=== PATIENT | male | born 1980 | race African-American/Black ===

== ENCOUNTER 2018-09-15 16:20 | Observation (INO) | payer SELFPAY ==
[2018-09-15 16:56] VITALS: BMI 25.7
[2018-09-15] MEDS ORDERED: Acetaminophen 650 MG Suppository PR PRN (18:11)
[2018-09-15] MEDS ORDERED: Acetaminophen 325 MG TAB PO PRN (18:11)
[2018-09-15] MEDS ORDERED: Ondansetron PF 4 MG/2 ML Vial IVP PRN (18:11)
[2018-09-15] MEDS ORDERED: Ondansetron ODT 4 MG TAB PO PRN (18:11)
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
--- NOTE | 2018-09-15 19:53 | RAD ---
LUMBAR SPINE: 09/15/18 Three views. HISTORY: Lower extremity weakness. Lumbar vertebrae maintain height and alignment. There are mild to moderate degenerative osteophytes. The disc spaces are preserved. No evidence of spondylolisthesis or spondylolysis. IMPRESSION: There are mild degenerative changes noted with spurring from the lumbar vertebrae. No acute process. POS: MAGGIE
[2018-09-15] MEDS: Pramipexole Di-HCl 1 MG TAB PO SCH (20:41)
[2018-09-15] MEDS ORDERED: Pramipexole Di-HCl 0.25 MG TAB PO SCH (21:00)
--- NOTE | 2018-09-16 07:06 | PDOC.FM ---
- Subjective Subjective: pt resting comfortably in bed, denies pain, SOB, or dysphagia. - Objective Vital Signs & Weight: Vital Signs (12 hours) Temp Pulse Resp BP BP Pulse Ox 09/16/18 03:30 97.9 F 62 18 133/69 99 09/15/18 23:30 98.0 F 60 17 134/84 98 09/15/18 20:00 97.9 F 56 L 16 137/76 99 Weight Weight 79.124 kg I&O: 09/15/18 09/16/18 09/17/18 06:59 06:59 06:59 Intake Total 450 Output Total 700 Balance -250 Result Diagrams: 09/16/18 10:09 09/16/18 10:09 Phys Exam - Physical Examination Constitutional: NAD HEENT: moist MMs Neck: full ROM Musculoskeletal: pulses present Neurological: moves all 4 limbs hyperreflexia, +babinski, fasiculations and atrophy Lymphatic: no nodes Psychiatric: normal affect Skin: no rash Dx/Plan (1) Lower motor neuron disease Code(s): G12.29 - OTHER MOTOR NEURON DISEASE Status: Acute (2) Upper motor neuron disease Code(s): G12.21 - AMYOTROPHIC LATERAL SCLEROSIS Status: Acute - Plan Plan: 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 Hearn. I agree with the History, Examination, Assessment and Plan documented above with any addition or exceptions noted below. Patient here with several month history of progressive weakness, ataxia, and hyperreflexia. Direct admitted from outside clinic due to concern for worsening status. Awaiting L spine MRI and further mgmt per that result including further spine imaging or specialist consult. Consult PT. MRI brain previously obtained which was normal. Continue steroids.
[2018-09-16] MEDS ORDERED: predniSONE 20 MG TAB PO SCH (08:00)
[2018-09-16] MEDS: Pramipexole Di-HCl 1 MG TAB PO SCH (09:23)
[2018-09-16 10:19] LABS: #Basophils 0.1 thou/uL (0.0-0.2); #Eosinphils 0.3 thou/uL (0.0-0.7); #Lymphocytes 3.4 thou/uL (1.20-3.40); #Monocytes 0.7 thou/uL (0.11-0.59); #Neutrophils 3.5 thou/uL (1.40-6.50); %Basophils 0.8 % (0.0-1.0); %Eosinophils 3.5 % (0.0-10.0); %Lymphocytes 43.1 % (21.0-51.0); %Monocytes 8.7 % (0.0-10.0); Hemoglobin 12.8 g/dL (14.0-18.0); Mean Corpuscular HGB CONC 32.6 g/dL (32.0-36.0); Mean Corpuscular Hemoglobin 31.2 pg (27.0-31.0); Mean Corpuscular Volume 95.6 fL (78.0-98.0); Mean Platelet Volume 6.8 fL (7.4-10.4); Platelet Count 275 thou/uL (130-400); RBC Distribution Width 12.3 % (11.5-14.5); Red Blood Cell (RBC) Count 4.12 mill/uL (4.70-6.10); White Blood Cell (WBC) Count 7.9 thou/uL (4.8-10.8)
[2018-09-16 10:42] LABS: ALT (SGPT) 41 U/L (8-55); AST (SGOT) 33 U/L (5-34); Albumin 4.1 g/dL (3.5-5.0); Alkaline Phosphatase 41 U/L (40-150); Anion Gap 11 mmol/L (10-20); BUN (Urea Nitrogen) 8 mg/dL (8.9-20.6); Bilirubin, Total 0.2 mg/dL (0.2-1.2); Calc. Creatinine Clearance 137 mL/min (70-130); Calcium 9.6 mg/dL (7.8-10.44); Carbon Dioxide 28 mmol/L (22-29); Chloride 104 mmol/L (98-107); Estimated GFR-MDRD Greater than 90; Globulin 2.7 g/dL (2.4-3.5); Glucose 99 mg/dL (70-105); Phosphorus 3.6 mg/dL (2.3-4.7); Potassium 3.5 mmol/L (3.5-5.1); Protein, Total 6.8 g/dL (6.0-8.3); Sodium 139 mmol/L (136-145)
--- NOTE | 2018-09-16 10:45 | MRI ---
Exam: MRI LUMBAR SPINE WITH AND WITHOUT CONTRAST: HISTORY: Back spasm with bilateral lower extremity weakness, 5-6 months. Patient has a past medical h istory of a horse landing on top of him 7 years ago. COMPARISON: None FINDINGS: Appropriate T1 marrow signal intensity of the lumbar vertebra. Lumbar spine vertebral body height is maintained. No fracture. No significant STIR hyperintensity to suggest vertebral body edema or ligamentous injury. Appropriate signal intensity of this paraspinal muscles and solid organs. Conus medullaris terminates at the mid L1 level. Postcontrast images do not demonstrate any abnormal enhancement with regards to the vertebral bodies. No evidence of epidural fibrosis. No abnormal enhancement in the visualized spinal cord, cauda equina and conus medullaris. Note, there is heterogeneous T2 hyperintensity noted in the distal thoracic cord. Findings may be art ifactual. Intramedullary lesion cannot be completely excluded. T12-L1: No significant central canal stenosis. Neural foramina are patent. L1-L2: No significant central canal stenosis. Neural foramina are patent. L2-L3: No significant central canal stenosis. Minimal ligament flavum thickening and facet hypertroph y. Bilaterally, neural foramina are patent. L3-L4: Adequate disc hydration. Minimal generalized disc bulge, ligament flavum thickening and facet hypertrophy do not cause any significant central canal stenosis. There is minimal narrowing of the left subarticular zone. There is partial obscuration the traversing left L4 nerve root secondary to d isc material and posterior element hypertrophy. Mild right neural foraminal narrowing. Left neural foramen is patent L4-L5: Adequate disc hydration. No significant stenosis of the thecal sac. Right subarticular zone is unremarkable. Mild narrowing of the left subarticular zone. There is mass effect without obscuration of the traversing left L5 nerve root. Mild ligament flavum thickening and facet hypertrop hy. Small amount of fluid in both facet joints. Mild to moderate bilateral neural foraminal narrowing. L5-S1: Adequate disc hydration. No significant central canal stenosis or neural foraminal narrowing. IMPRESSION: 1. No significant stenosis of the thecal sac. 2. Narrowing of the left subarticular zone at L3-L4 and L4-L5, as described above. Mass effect and pa rtial obscuration of the traversing left L4 nerve root. Mass effect without obscuration of traversing left L5 nerve root. 3. Questionable heterogeneous T2 hyperintensity in the visualized distal thoracic cord. Findings may be artifactual. Intramedullary lesion cannot be excluded. Dedicated pre and postcontrast thoracic spine MRI is recommended 4. No abnormal vertebral body enhancement on the postcontrast images. No evidence of lumbar spine fra cture. Transcribed Date/Time: 09/16/2018 10:58 AM
[2018-09-16] MEDS ORDERED: Gadobenate Dimeglumine 529 MG/1 ML (20ML VIAL) ONE (11:35)
[2018-09-16 12:13] VITALS: BP 135/76; TEMP 97.5
--- NOTE | 2018-09-17 10:28 | DIS ---
DATE OF ADMISSION: 09/15/2018 DATE OF DISCHARGE: 09/16/2018 ADMITTING ATTENDING: Delano Fuentes MD CONSULTS: None. IMAGIN. Lumbar spine x-ray reveals no acute abnormalities. 2. Lumbar spine MRI significant for questionable heterogeneous hyperintensity in the visualized distal thoracic cord. Findings may be artifactual, intramedullary lesion cannot be excluded. Dedicated pre and postcontrast thoracic MRIs recommended. DISCHARGE MEDICATIONS: Prednisone 20 mg p.o. daily. DISCONTINUED MEDICATIONS: Mirapex 0.25 mg p.o. t.i.d. DISCHARGE DIAGNOSIS: Upper and lower motor neuron lesion. HISTORY OF PRESENT ILLNESS/HOSPITAL COURSE: Mr. Crane is a 38-year-old male presenting to the emergency department with a chief complaint of lower leg weakness and trouble walking. Since March of this year, he had weakness and stiffness and difficulty with ambulation. He denies any syncope, seizure, or chest pain at that time, just increasing weakness and fasciculations of his muscles. Outside workup being completed includes a CMP, CBC, RPR, HIV, ESR, and brain MRI which were all normal. He was brought in to the hospital for further evaluation including a lumbar spine MRI, which revealed possible intramedullary lesion, recommending further evaluation with T-spine MRI. This would have to be completed the following day because of the contrast load the patient had received for the lumbar spine MRI. The patient did not desire to wait for the following day, would like to complete scheduled appointment at [facility] the following day. The patient was discharged to follow up with [facility] the following day. DISCHARGE INSTRUCTIONS: Location: Home. Activity: As tolerated. Diet: Regular. Followup: Follow up with [facility] on 09/17/2018, and PCP within the next 2 weeks. Job ID: [id number]
== END 2018-09-16 16:09 | disposition home or self-care (01) ==
LOC: 2SW 16:25
PROVIDERS: ADMIT Student in an Organized Health Care Education/Training Program; ATTEND Student in an Organized Health Care Education/Training Program
DX: G12.21 Amyotrophic lateral sclerosis (principal); Z79.52 Long term (current) use of systemic steroids; Z99.89 Dependence on other enabling machines and devices
CPT/HCPCS: 36415; 72100; 72158; 80053; 82550; 84100; 84443; 85025; A9577; G0378; J7512

== ENCOUNTER 2018-09-17 11:36 | Inpatient (IN) | payer SELFPAY ==
[2018-09-17] MEDS ORDERED: Ondansetron ODT 4 MG TAB PO PRN (12:24)
[2018-09-17] MEDS ORDERED: Ondansetron PF 4 MG/2 ML Vial IVP PRN (12:24)
[2018-09-17] MEDS ORDERED: Acetaminophen 325 MG TAB PO PRN ×2 (12:25)
[2018-09-17 12:40] VITALS: BMI 24.7
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
[2018-09-17 13:07] LABS: #Eosinphils 0.1 thou/uL (0.0-0.7); #Lymphocytes 1.3 thou/uL (1.20-3.40); #Monocytes 0.4 thou/uL (0.11-0.59); #Neutrophils 4.3 thou/uL (1.40-6.50); %Basophils 0.7 % (0.0-1.0); %Eosinophils 1.1 % (0.0-10.0); %Lymphocytes 20.6 % (21.0-51.0); %Monocytes 5.8 % (0.0-10.0); %Neutrophils 71.7 % (42.0-75.0); Hemoglobin 13.5 g/dL (14.0-18.0); Mean Corpuscular HGB CONC 32.8 g/dL (32.0-36.0); Mean Corpuscular Hemoglobin 31.6 pg (27.0-31.0); Mean Corpuscular Volume 96.2 fL (78.0-98.0); Mean Platelet Volume 6.9 fL (7.4-10.4); Platelet Count 288 thou/uL (130-400); RBC Distribution Width 12.4 % (11.5-14.5); Red Blood Cell (RBC) Count 4.28 mill/uL (4.70-6.10); White Blood Cell (WBC) Count 6.1 thou/uL (4.8-10.8)
[2018-09-17 13:27] LABS: Anion Gap 13 mmol/L (10-20); BUN (Urea Nitrogen) 9 mg/dL (8.9-20.6); Calc. Creatinine Clearance 126 mL/min (70-130); Carbon Dioxide 27 mmol/L (22-29); Chloride 103 mmol/L (98-107); Estimated GFR-MDRD Greater than 90; Glucose 130 mg/dL (70-105); Potassium 3.7 mmol/L (3.5-5.1); Sodium 139 mmol/L (136-145)
[2018-09-17] MEDS: Dexamethasone 1 MG TAB PO SCH ×2 (15:18→20:57)
[2018-09-17] MEDS: Dexamethasone 4 mg/ml Vial SLOW IVP SCH ×2 (15:18→20:16)
--- NOTE | 2018-09-17 18:05 | MRI ---
MRI CERVICAL SPINE WITH AND WITHOUT CONTRAST: 09/17/17 HISTORY: Possible abnormal signal noted in the distal thoracic cord. Cervical myelopathy. COMPARISON: None. FINDINGS: Straightening of the normal cervical lordosis. Appropriate T1 marrow signal intensity of the cervical vertebrae. The vertebral body height is maintained. No evidence of fracture. Type I Modic changes al hermila the C5-C6 disc space. There is associated mild enhancement. No additional areas of enhancement in the cervical vertebrae. There is no abnormal enhancement with regards to the visualized brain parenchyma, cervicomedullary ju nction, cervical cord, or the upper thoracic cord. No evidence of T2 hyperintensity in the cord. No cord expansion. C2-C3: Generalized disc bulge without significant central canal stenosis. Mild bilateral foraminal na rrowing. C3-C4: Central disc protrusion with a right paracentral component. Mass effect and deformity of the c ervical cord. Severe central canal stenosis. Severe right and moderate left foraminal narrowing. C4-C5: Broad based disc osteophyte complex with severe central canal stenosis. Severe bilateral maria luisa inal narrowing. C5-C6: Broad based disc osteophyte complex with severe central canal stenosis. Severe bilateral maria luisa inal narrowing. C6-C7: Central/left paracentral disc osteophyte complex with mass effect upon the left aspect of the spinal cord. Moderate central canal stenosis. Moderate to severe bilateral neural foraminal narrowing . C7-T1: Mild central canal stenosis secondary to generalized disc bulge. Neural foramina are patent. IMPRESSION: 1. Degenerative changes of the cervical spine as described above. There is severe central canal stenosis at C4-C5 and C5-C6. There is additional significant central canal stenosis of C3-C4 and C5-C 6 as described above. 2. Varying degrees of neural foraminal narrowing as detailed above. 3. No abnormal T2 hyperintensity or enhancement in the visualized spinal cord. POS: OFF
[2018-09-17] MEDS: Famotidine 20 MG TAB PO SCH (20:57)
[2018-09-18] MEDS: Dexamethasone 1 MG TAB PO SCH (08:02)
[2018-09-18] MEDS: Dexamethasone 4 mg/ml Vial SLOW IVP SCH ×3 (08:03→20:01)
[2018-09-18 10:05] LABS: PTT 26.6 SEC (22.9-36.1); Prothrombin Time 13.7 SEC (12.0-14.7)
[2018-09-18] MEDS: Famotidine 20 MG TAB PO SCH ×3 (10:06→20:00)
--- NOTE | 2018-09-18 11:01 | PRG ---
DATE OF SERVICE: 09/18/2018 SUBJECTIVE: The patient is a 38-year-old otherwise healthy, male, who was seen in our office yesterday with symptoms of severe cervical myelopathy. Considering the profound nature of his symptoms, we felt that it would be best to directly admit him for emergent noncontrast cervical MRI. MRI was done, which was notable for profound and severe cervical stenosis at C3-C6 with T2 cord signal changes at these levels. The patient has been treated with IV Decadron overnight and he reports slight improvement in his dysesthesias as well as overall symptoms. The patient is lying comfortably in the bed this morning. His vital signs are stable. He does have free active range of motion of all extremities, but he is generally weak throughout. He has notable spasticity in the lower extremities and has positive Alondra and clonus sign. He is very hyperreflexive throughout. I reviewed the imaging with Dr. Manjarrez, who agrees that for neurologic preservation, the patient will require C3 to C6 anterior and posterior decompression and fusion. The patient should remain with this over the weekend and continue to receive 3 mg of IV Decadron t.i.d. I have also added baclofen to his regimen for his spasticity. He has been made n.p.o. at midnight on Friday and we anticipate his surgery to be on Friday. Dr. Manjarrez will meet with him as well as discuss this more in depth. Job ID: [id number]
[2018-09-18] MEDS: Baclofen 10 MG TAB PO SCH (20:00)
[2018-09-19] MEDS: Famotidine 20 MG TAB PO SCH ×2 (07:57→20:28)
[2018-09-19] MEDS: Baclofen 10 MG TAB PO SCH ×2 (07:57→20:28)
[2018-09-19] MEDS: Dexamethasone 4 mg/ml Vial SLOW IVP SCH ×3 (07:58→20:34)
[2018-09-19] MEDS: Nicotine 21 MG PATCH TD SCH (07:58)
--- NOTE | 2018-09-19 10:11 | PRG ---
DATE OF SERVICE: 09/19/2018 I saw Anthony Crane in his hospital room this morning. He was admitted with rapidly progressive cervical spondylotic myelopathy prevented him from working. He was found to have severe cord compression and planned for surgery. Steroids were started over the weekend and he is anticipating a surgical intervention on Friday. He has no complaints for me this morning. Vital signs overnight did not reveal fever. Other vital signs have been stable. His examination is notable for upper motor neuron weakness in 4 extremities. There is some spasticity as well. The plan is for surgical intervention on Friday. He will need to stop the dipping tobacco that I saw him using this morning. We will keep him n.p.o. after midnight on Friday. We will make sure his antibiotics ordered for the operating room on Friday. If there are no consents on the chart, consent will be filled out. Job ID: [id number]
[2018-09-20] MEDS: Dexamethasone 4 mg/ml Vial SLOW IVP SCH ×3 (09:02→20:25)
[2018-09-20] MEDS: Baclofen 10 MG TAB PO SCH ×2 (09:02→20:24)
[2018-09-20] MEDS: Famotidine 20 MG TAB PO SCH ×2 (09:06→20:24)
--- NOTE | 2018-09-20 10:22 | PRG ---
DATE OF SERVICE: 09/20/2018 I saw Antohny Crane in his hospital room this morning. He has been anxious about surgery, but ready to have it done. He has been added to the schedule. We will make him n.p.o. after midnight and ensure antibiotics were ordered. I have a consent placed on the chart and will let Anesthesia know. Job ID: [id number] MTDD
[2018-09-21] MEDS ORDERED: CEFAZOLIN 2 GM in Premix Bag 1 BAG IVPB SCH (09:30)
[2018-09-21] MEDS: Nicotine 21 MG PATCH TD SCH ×2 (10:12→10:14)
[2018-09-21] MEDS: Dexamethasone 4 mg/ml Vial SLOW IVP SCH ×2 (10:13→16:17)
[2018-09-21] MEDS: Famotidine 20 MG TAB PO SCH ×2 (10:13→20:09)
[2018-09-21] MEDS: Baclofen 10 MG TAB PO SCH ×2 (10:13→20:09)
--- NOTE | 2018-09-21 13:44 | PRG ---
DATE OF SERVICE: 09/21/2018 SUBJECTIVE: I visited with Mr. Estevez and his . Mr. estevez is a 38-year-old man, who has had progressive cervical myelopathy for at least the last 6 months, but perhaps longer. Has become extremely severe with severe gait imbalance and impairment of hand function. He was ultimately admitted directly from clinic for the purpose of more aggressive evaluation. Imaging of the cervical spine reveals profound cervical stenosis from C3 to C6 and slightly less so at C6-C7. IMPRESSION AND PLAN: The patient will require surgical decompression in the hopes of neurologic preservation. Situation is extremely difficult and the structural lesion is quite severe for many elements of ossified posterior longitudinal ligament and the degree of anterior compression is fairly profound. I would recommend both anterior and posterior decompression and stabilization from C3 to C6, and I discussed the indication, risks, benefits, and alternatives of the procedure with the patient and his . I specifically feel that the situation is quite high risk given the amount of spinal cord compression and the presurgical neurologic status, and I discussed this candidly with the patient and his . They expressed their understanding. All questions were answered and they wished to proceed. Job ID: [id number]
[2018-09-21] MEDS ORDERED: Fentanyl 250 MCG/5 ML VIAL ONE (14:07)
[2018-09-21] MEDS ORDERED: Sodium Chloride 0.9% 10 ML ONE ×2 (14:08→15:04)
[2018-09-21] MEDS ORDERED: Midazolam HCl 2 mg/2 ml Vial ONE (14:22)
[2018-09-21] MEDS ORDERED: Bacitracin Zinc Ointment 30 gm TUBE ONE (15:04)
[2018-09-21] MEDS ORDERED: Promethazine HCl 25 MG/ML VIAL SLOW IVP PRN ×2 (15:11→17:25)
[2018-09-21] MEDS ORDERED: Ondansetron HCl/PF 4 MG/2 ML Vial IVP PRN ×2 (15:11→17:25)
[2018-09-21] MEDS ORDERED: Meperidine HCl/PF 25 MG/ML VIAL SLOW IVP PRN (15:11)
[2018-09-21] MEDS ORDERED: Promethazine HCl 25 MG/ML VIAL IM PRN ×2 (15:11→17:25)
[2018-09-21] MEDS ORDERED: Lidocaine 1% PF 5 ML VIAL ONE (16:35)
[2018-09-21] MEDS ORDERED: PROPOFOL 200 MG/20 ML VIAL ONE (16:35)
[2018-09-21] MEDS ORDERED: Rocuronium Bromide 10 MG/ML (10ML VIAL) ONE (16:35)
[2018-09-21] MEDS ORDERED: ePHEDrine 50 MG/ML VIAL ONE (16:35)
[2018-09-21] MEDS ORDERED: Dexamethasone 20 MG/5 ML VIAL ONE (16:35)
--- NOTE | 2018-09-21 17:24 | OP ---
DATE OF PROCEDURE: 09/21/2018 RUSSET REPAIRER: Henry Talbert PA-C PROCEDURES PERFORMED: Anterior cervical diskectomy C3 through C6, interbody arthrodesis, intervertebral biomechanical device, local morselized autograft, demineralized bone matrix, anterior titanium instrumentation C3 through C6; posterior approach C3 through C6 laminectomies, posterolateral arthrodesis, demineralized bone matrix, local morselized autograft, lateral mass screw instrumentation C3 through C6. DESCRIPTION OF PROCEDURE: The patient was brought to the operating room and intubated. He was positioned supine with the head in modest extension on a gel-filled donut. An incision was made in the right precervical area and dissected medial to the sternocleidomastoid muscle. We identified the anterior cervical spinal, and the level was confirmed by x-ray. We debrided the anterior osteophytes, placed distraction across the disk spaces, and using the operative microscope and microdissection techniques, completely decompressed the spinal cord at each affected level from C3 through C6. Next, the bony endplates were decorticated for the purpose of arthrodesis and appropriate-sized intervertebral biomechanical PEEK device was brought into the field and filled with demineralized bone matrix and local morselized autograft, and tapped in place securely at C3-C4, C4-C5, and C5-C6. Next, an anterior plate was brought into the field and secured to C3, C4, C5, and C6 using two 14-mm screws at each level. The wound was then extensively irrigated. MAC hemostasis was secured and the wound was closed in anatomic layers over drain. The patient was then rolled in a prone position on gel-filled chest rolls with the head fixed in a Addy irrigator head in a neutral position. An incision was made in the posterior cervical region from C3 to C6, and the level was confirmed by x-ray. We performed complete C6, complete C5, complete C4, and complete C3 laminectomies and completely decompressing the spinal cord at the levels. We then placed lateral mass screws on the right at C6, C5, C4, and C3 connected by rods, secured by nuts, which were final tightened. The wound was then extensively irrigated. MAC hemostasis was secured. A combination of demineralized bone matrix and local morselized autograft were laid over the left lamina surfaces for the purpose of arthrodesis. Vancomycin powder was applied and the wound was then closed in anatomic layers over drain. Job ID: [id number]
[2018-09-21] MEDS ORDERED: HYDROmorphone 2 MG/ML VIAL SLOW IVP PRN (17:25)
[2018-09-21] MEDS ORDERED: Fentanyl 100 MCG/2 ML VIAL ONE ×3 (17:29→19:05)
[2018-09-21] MEDS: Morphine 2 MG/ML SYRINGE SLOW IVP PRN (20:08)
[2018-09-21] MEDS: HYDROcodone/Acetaminophen 10/325 mg Tablet PO PRN (20:10)
[2018-09-21] MEDS: Dexamethasone 1 MG TAB PO SCH (20:12)
[2018-09-21] MEDS: CEFAZOLIN 1 GM VIAL SLOW IVP SCH (21:13)
[2018-09-22] MEDS: Morphine 2 MG/ML SYRINGE SLOW IVP PRN ×2 (00:20→05:05)
[2018-09-22] MEDS ORDERED: Diazepam 5 MG TAB PO PRN (02:00)
[2018-09-22] MEDS: Sodium Chloride 0.9% 1,000 ML IV SCH ×3 (02:12→18:06)
[2018-09-22] MEDS ORDERED: Tamsulosin HCl 0.4 MG CAP PO SCH (03:00)
[2018-09-22] MEDS: HYDROcodone/Acetaminophen 10/325 mg Tablet PO PRN ×2 (03:44→19:21)
[2018-09-22] MEDS: CEFAZOLIN 1 GM VIAL SLOW IVP SCH ×3 (05:05→21:41)
--- NOTE | 2018-09-22 07:54 | PRG ---
DATE OF SERVICE: 09/22/2018 SUBJECTIVE: Mr. Cruz is a 38-year-old male, who was recently seen by us in the office for severe cervical myelopathy and found to have severe cervical stenosis from C3 to C6. He underwent anterior and posterior decompression from C3 to C6 on 09/21/2018. Following the surgery, he was transitioned to the Med/Surg floor, where his pain has been well controlled with p.o. and IV medication, he has been tolerating a regular diet. He did initially have some difficulty with voiding and required I and O cath overnight. He was also treated with p.o. Flomax. This has improved, and he is able to urinate quite a large amount this morning. He has also been complaining of some increased spasticity in the lower extremities. He is scheduled baclofen 10 mg p.o. b.i.d., and he also has p.r.n. Valium 10 mg p.o. t.i.d. OBJECTIVE: On exam this morning, he has free active range of motion of upper and lower extremities. He is generally weak 4- throughout. He is very hyperreflexive throughout and he has notable intermittent spasticity to the lower extremities. His dressings are dry and intact. There is a small amount of blood in his bilateral JPs. Overnight PEPPER in the anterior was 90 mL of output and PEPPER on the posterior was 170 mL of output. PLAN: We will plan to leave PEPPER drains in place and continue to monitor his output. The patient should continue to receive IV Ancef during this time as well. With regard to his spasticity, we will continue the baclofen and change the Valium from p.r.n. to the scheduled t.i.d. dosing. I have also ordered continued Flomax daily for his urinary retention; however, this appears to be improving with time. We will have the patient begin to work with PT and OT, and I have ordered a rehab screen. Job ID: [id number]
[2018-09-22] MEDS: Famotidine 20 MG TAB PO SCH ×2 (09:49→20:19)
[2018-09-22] MEDS: Baclofen 10 MG TAB PO SCH ×2 (09:49→20:19)
[2018-09-22] MEDS: Nicotine 21 MG PATCH TD SCH (09:50)
[2018-09-22] MEDS: Dexamethasone 1 MG TAB PO SCH ×3 (09:50→20:19)
[2018-09-22] MEDS: Diazepam 5 MG TAB PO SCH ×3 (09:50→20:18)
[2018-09-23] MEDS: HYDROcodone/Acetaminophen 10/325 mg Tablet PO PRN ×5 (00:25→18:15)
[2018-09-23] MEDS: Morphine 2 MG/ML SYRINGE SLOW IVP PRN ×3 (01:51→12:11)
[2018-09-23] MEDS: CEFAZOLIN 1 GM VIAL SLOW IVP SCH (05:23)
--- NOTE | 2018-09-23 08:43 | PRG ---
DATE OF SERVICE: 09/23/2018 SUBJECTIVE: The patient is postoperative day #2, status post C3 through C6 anterior and posterior decompression and fusion. He reports that he rested better overnight and his pain is improving after adjustment in his medications. He is also having less spasticity to the lower extremities with the addition of Valium. He did mobilize short distance in the hallways with a walker and he has worked with PT and OT. His PEPPER drains overnight anterior put out 20 mL and the posterior put out 30 mL. OBJECTIVE: On exam this morning, the patient is resting comfortably. He has free active range of motion of all extremities, that is generally weak throughout. He is hyperreflexive with positive Loredo's and clonus sign. His incisions are dry and intact. PLAN: We will plan to remove his PEPPER drains today. We will continue to mobilize and advance his diet. Unfortunately pt does not qualify for rehab because he is not insured. We will continue to mobilize him here until ready for discharge. Job ID: [id number] [facility]
[2018-09-23] MEDS: Famotidine 20 MG TAB PO SCH ×2 (09:28→20:26)
[2018-09-23] MEDS: Dexamethasone 1 MG TAB PO SCH ×3 (09:28→20:27)
[2018-09-23] MEDS: Cephalexin 250 MG CAP PO SCH ×4 (09:28→20:27)
[2018-09-23] MEDS: Diazepam 5 MG TAB PO SCH ×3 (09:29→20:26)
[2018-09-23] MEDS: Tamsulosin HCl 0.4 MG CAP PO SCH (09:29)
[2018-09-23] MEDS: Baclofen 10 MG TAB PO SCH ×2 (09:29→20:26)
[2018-09-23] MEDS: Nicotine 21 MG PATCH TD SCH (09:29)
[2018-09-23] MEDS: Sodium Chloride 0.9% 1,000 ML IV SCH ×2 (12:01→20:30)
--- NOTE | 2018-09-23 12:31 | PRG ---
DATE OF SERVICE: 09/23/2018 Mr. estevez has been ambulatory and doing reasonably well. Pain management remains a significant issue given the posterior cervical pain that he is having. We will remove his drains today, and he will continue with physical therapy. It is unlikely we will successfully obtain rehab placement given his insurance issues, but he will be an inpatient for several more days regardless due to pain management. Job ID: [id number]
[2018-09-24] MEDS: HYDROcodone/Acetaminophen 10/325 mg Tablet PO PRN ×3 (05:28→13:06)
[2018-09-24] MEDS: Famotidine 20 MG TAB PO SCH (08:55)
[2018-09-24] MEDS: Baclofen 10 MG TAB PO SCH (08:55)
[2018-09-24] MEDS: Cephalexin 250 MG CAP PO SCH ×2 (08:55→13:06)
[2018-09-24] MEDS: Diazepam 5 MG TAB PO SCH (08:56)
[2018-09-24] MEDS: Nicotine 21 MG PATCH TD SCH (08:59)
[2018-09-24] MEDS: Tamsulosin HCl 0.4 MG CAP PO SCH (08:59)
[2018-09-24] MEDS ORDERED: Dexamethasone 1 MG TAB PO SCH (09:00)
[2018-09-24 11:19] VITALS: TEMP 98.2
[2018-09-24 15:38] VITALS: BP 120/80
--- NOTE | 2018-09-25 05:11 | DIS ---
DATE OF ADMISSION: 09/17/2018 DATE OF DISCHARGE: 09/24/2018 HOSPITAL COURSE: Patient is a 38-year-old male who was admitted on 09/17/2018 for symptoms of severe cervical myelopathy. Patient underwent MRI of the cervical spine during this stay and was found to have severe cervical stenosis from C3-C6. He underwent C3-C6 anterior and posterior decompression and fusion on 09/21/2018. Following the surgery, he was transitioned to the Med/Surg floor. His pain has improved during his admission and is now tolerated well with p.o. Beverly. He had significant spasticity before and after the surgery, but this is improved significantly with p.o. baclofen and Valium. He is tolerating a regular diet, and he has been mobilizing with the assistance of physical therapy and a walker. Initially, we had planned to do inpatient rehabilitation, however, considering patient's lack of funding, this is not available. He improved enough during his admission course and would like to go home at this time. On my exam this morning, he is sitting up comfortably in a chair. He has free active range of motion of all extremities. He is generally weak in the upper and lower extremities and has notable hyperreflexia with positive Loredo's and positive clonus. He still has an unsteady gait, but he is able to mobilize with a walker. His incisions are dry and intact. We will plan to dismiss the patient to home. I have provided him with prescriptions for Beverly, Valium, baclofen, Keflex, and a Decadron taper. We will plan to follow up with the patient in 2 weeks in our office and we will remove the adenike at that time. I will ask Case Management to assist with getting him a rolling walker for home as well as look into options for outpatient physical therapy assistance in funding. I have discussed with Dr. Manjarrez who is in agreement with this plan. Job ID: [id number]
[2018-09-26] MEDS ORDERED: Dexamethasone 1 MG TAB PO SCH (09:00)
== END 2018-09-24 16:05 | disposition home or self-care (01) | DRG 454 ==
LOC: T4-B 11:54 → SURG A 09-21 18:47
PROVIDERS: ADMIT Neurological Surgery; ATTEND Neurological Surgery
PROC: 0RG20A0 Fusion of 2 or more Cervical Vertebral Joints with Interbody Fusion Device, Anterior Approach, Anterior Column, Open Approach (ICD-10-PCS; principal; 2018-09-21)
PROC: 0RG4071 Fusion of Cervicothoracic Vertebral Joint with Autologous Tissue Substitute, Posterior Approach, Posterior Column, Open Approach (ICD-10-PCS; 2018-09-21)
PROC: 0RB30ZZ Excision of Cervical Vertebral Disc, Open Approach (ICD-10-PCS; 2018-09-21)
DX: M48.02 Spinal stenosis, cervical region (principal); G99.2 Myelopathy in diseases classified elsewhere; F17.200 Nicotine dependence, unspecified, uncomplicated; G20 Parkinson's disease; Z79.899 Other long term (current) drug therapy
CPT/HCPCS: 36415; 72156; 76000; 80048; 85025; 85610; 85730; 93005; 93010; C1713; C1768; C1776; J0131; J0690; J1100; J2001; J2250; J2270; J2405; J2704; J3010; J3370; J3490; J8540

== ENCOUNTER 2018-10-06 15:49 | Outpatient (CLI) | payer OTHER ==
--- NOTE | 2018-10-06 17:14 | RAD ---
THREE VIEWS CERVICAL SPINE: 10/06/18 HISTORY: Cervical spondylosis. Patient is post recent surgery. COMPARISON: None available. FINDINGS: Postsurgical changes of the cervical spine are noted with evidence of anterior as well as posterior f usion. There is an anterior plate and screws transfixing the C3-4, C4-5, and C5-6 levels with unilate ral right sided pedicular screws transfixing these levels as well with posterior luana. No hardware com plication is seen. Intradiscal prosthesis are seen at level of postsurgical changes in addition to la minectomy defects. Skin clips are seen posterior to the cervical spine. There is soft tissue swelling seen posterior to the level of the cervical spine as well as prevertebral soft tissue swelling also present. There is straightening of the normal cervical lordotic curvature. Degenerative changes are seen at the C6-7 level with narrowing of the intervertebral disc space as we ll as anterior and posterior osteophyte formation. No fracture or subluxation is appreciated. IMPRESSION: 1. Postsurgical changes related to anterior as well as posterior cervical fusion of the C3 throu gh C6 levels. No hardware complication is seen. 2. Prevertebral soft tissue swelling and soft tissue swelling posterior to the cervical spine wh ich may be related to recent postoperative changes. Clinical correlation is recommended, and follow-u p evaluation can be performed as indicated. POS: MAGGIE
== END 2018-10-06 15:50 | disposition home or self-care (01) ==
LOC: TBSIIMAG 15:49
PROVIDERS: ATTEND Neurological Surgery
DX: M47.12 Other spondylosis with myelopathy, cervical region (principal); M79.89 Other specified soft tissue disorders; Z98.1 Arthrodesis status
CPT/HCPCS: 72040

== ENCOUNTER 2018-11-27 08:23 | Outpatient (CLI) | payer OTHER ==
--- NOTE | 2018-11-27 09:33 | RAD ---
CERVICAL SPINE 3 VIEWS: Date: 11/27/18 COMPARISON: 10/06/18. FINDINGS: There is no prevertebral soft tissue swelling. Redemonstration of the anterior fusion plate with norman svertebral body screw at C3, C4, C5, and C6. Right-sided posterior fusion hardware traversing the fac ets at C3, C4, C5, and C6. Disc prostheses at C3-C4, C4-C5, and C5-C6. Stable mild to moderate degene rative changes at C6-C7. Predental space is normal. Appropriate alignment of the lateral masses of C1 and C2. Intact odontoid process. In the AP projection, no malalignment. There has been interval removal of surgical skin adenike. IMPRESSION: Stable cervical fusion changes. POS: C
== END 2018-11-27 08:24 | disposition home or self-care (01) ==
LOC: TBSIIMAG 08:23
PROVIDERS: ATTEND Neurological Surgery
DX: M48.02 Spinal stenosis, cervical region (principal); Z98.1 Arthrodesis status
CPT/HCPCS: 72040